=== PATIENT | male | born 1990 | race Caucasian/White ===

== ENCOUNTER 2023-10-06 11:01 | Emergency (ER) | payer SELFPAY ==
[~2023-10-06] VITALS: Ht 167.6 cm; Wt 63.6 kg
[~2023-10-06 11:01] MED LIST: CEPHALEXIN500 M1 PO; NO HOME MEDICATIONS
[2023-10-06 11:07] VITALS: TEMP 97.8
[2023-10-06 12:19] VITALS: PULSE 98
== END 2023-10-06 12:15 | disposition home or self-care (01) ==
LOC: COL.ER 11:01
DX: S82.832A Other fracture of upper and lower end of left fibula, initial encounter for closed fracture (principal); F17.200 Nicotine dependence, unspecified, uncomplicated; X50.1XXA Overexertion from prolonged static or awkward postures, initial encounter; Y93.01 Activity, walking, marching and hiking
CPT/HCPCS: L4386